=== PATIENT | male | born 1985 | race Caucasian/White ===

== ENCOUNTER → 2018-07-08 11:15 | Outpatient (CLI) | payer OTHER, SELFPAY | PROVIDERS: Family Provider Family Medicine; PCP Physician Assistant; Visit Provider Physician Assistant | DX: T14.8XXA Other injury of unspecified body region, initial encounter (principal) | CPT/HCPCS: 87070; 87075; 87205 ==

== ENCOUNTER 2018-07-27 17:16 | Emergency (ER) | payer OTHER, SELFPAY ==
[2018-07-27 17:23] VITALS: BP 131/78; PULSE 70; RESP 18; TEMP 36.6; O2SAT 97; BMI 28.4
--- NOTE | 2018-07-27 18:50 | ED_ITS ---
HPI - Wound/Laceration <JARETT Centeno - Last Filed: 07/27/18 20:16> General Chief Complaint: Wound/Laceration Stated Complaint: laceration to inner right thigh, stitches opening Time Seen by Provider: 07/27/18 18:38 Source: patient and family Mode of arrival: ambulatory Limitations: no limitations History of Present Illness HPI narrative: Patient is a 32-year-old male former smoker presents with his mother for chief complaint of concerned about a laceration on his right thigh. He received 22 stitches on his leg after being cut by a pipe at work at the end of June. He followed up with the walk-in clinic for suture removal on the , was told he was not ready to have his sutures out and then had them out on the of this month. Two days ago he noted purulent drainage, spreading redness and became concerned that the laceration was opening up again. He denies any fevers nausea vomiting or diarrhea. He denies any cough congestion shortness of breath or chest pain. Related Data Previous Rx's Medication Instructions Recorded cephalexin 500 mg PO QID 10 Days #40 cap 07/27/18 sulfamethoxazole-trimethoprim 1 tab PO BID #20 tab 07/27/18 Allergies Allergy/AdvReac Type Severity Reaction Status Date / Time No Known Drug Allergies Allergy Verified 07/27/18 19:19 Review of Systems <THIAGO Centeno - Last Filed: 07/27/18 20:16> Review of Systems GENERAL: Denies chills, fatigue, malaise, fever, sweats. HEENT: Denies sinus pain, ear pain, sore throat, difficulty swallowing, dizziness. RESPIRATORY: Denies dyspnea, cough, wheezing, hemoptysis, sputum. CARDIOVASCULAR: Denies chest pain, palpitations, orthopnea, edema, GASTROINTESTINAL: Denies nausea, vomiting, abdominal pain, diarrhea, constipation, melena. : Denies dysuria, frequency, incontinence, hematuria, urinary retention. MUSCULOSKELETAL: denies weakness, joint pain, or bony pain SKIN: See HPI NEUROLOGIC: Denies weakness, headache, numbness, change in speech, confusion, seizures, incoordination. PSYCHIATRIC: No concerning psychosocial issues. 12 point review of systems is negative except for those stated above Exam <JARETT Centeno - Last Filed: 07/27/18 20:16> Narrative Exam Narrative: GENERAL: This is a well-nourished, well-developed patient, in mild distress. HEAD: Atraumatic. Normocephalic. No temporal or scalp tenderness. EYES: Pupils equal round and reactive. Extraocular motions intact. No scleral icterus. No injection or drainage. ENT: Nose without bleeding, purulent drainage or septal hematoma. Throat without erythema, tonsillar hypertrophy or exudate. Uvula midline. Airway patent. NECK: Trachea midline. No JVD or lymphadenopathy. Supple, nontender, no meningeal signs. CARDIOVASCULAR: Regular rate and rhythm without murmurs, gallops, or rubs. RESPIRATORY: Clear to auscultation. Breath sounds equal bilaterally. No wheezes , rales, or rhonchi. GASTROINTESTINAL: Abdomen soft, non-tender, nondistended. No hepato-splenomegaly , or palpable masses. No guarding. EXTREMITIES: No clubbing, cyanosis, or edema. No joint tenderness, effusion, or edema noted. BACK: Nontender without deformity or crepitance. No flank tenderness. NEURO: AOx3. SKIN: Right ankle shaped 9 by 2 cm healing laceration noted superior aspect of right thigh. Superior aspect of laceration has approximately 2 cm separation. Noted to have granulation tissue, purulent exudate in surrounding erythema 1 cm around entire suture site. Depth is through dermis. Initial Vital Signs Initial Vital Signs: Vital Signs Temperature 97.8 F 07/27/18 17:23 Pulse Rate 70 07/27/18 17:23 Respiratory Rate 18 07/27/18 17:23 Blood Pressure 131/78 07/27/18 17:23 Pulse Oximetry 97 07/27/18 17:23 <Makayla Villalba DO - Last Filed: 07/28/18 01:19> Initial Vital Signs Initial Vital Signs: Vital Signs Temperature 97.8 F 07/27/18 17:23 Pulse Rate 70 07/27/18 17:23 Respiratory Rate 18 07/27/18 17:23 Blood Pressure 131/78 07/27/18 17:23 Pulse Oximetry 97 07/27/18 17:23 Course <SILVIO Centeno-EUSEBIO - Last Filed: 07/27/18 20:16> Orders Ordered: Discontinued Medications Cephalexin HCl (Keflex) 500 mg PO NOW ONE Stop: 07/27/18 19:03 Last Admin: 07/27/18 19:16 Dose: 500 mg Trimethoprim/Sulfamethoxazole (Bactrim Ds) 1 tab PO NOW ONE Stop: 07/27/18 19:03 Last Admin: 07/27/18 19:16 Dose: 1 tab Vital Signs - 8 hr 07/27/18 17:23 07/27/18 20:01 Temperature 97.8 F Pulse Rate 70 71 Respiratory Rate 18 12 Blood Pressure 131/78 136/84 Pulse Oximetry 97 97 <Makayla Villalba DO - Last Filed: 07/28/18 01:19> Orders Ordered: Discontinued Medications Cephalexin HCl (Keflex) 500 mg PO NOW ONE Stop: 07/27/18 19:03 Last Admin: 07/27/18 19:16 Dose: 500 mg Trimethoprim/Sulfamethoxazole (Bactrim Ds) 1 tab PO NOW ONE Stop: 07/27/18 19:03 Last Admin: 07/27/18 19:16 Dose: 1 tab Vital Signs - 8 hr 07/27/18 17:23 07/27/18 20:01 Temperature 97.8 F Pulse Rate 70 71 Respiratory Rate 18 12 Blood Pressure 131/78 136/84 Pulse Oximetry 97 97 MDM - Wound/Laceration <JARETT Centeno - Last Filed: 07/27/18 20:16> MDM Narrative Medical decision making narrative: Patient presents with a wound status post suture removal. Given the purulent exudate spreading erythema, I am starting him on Keflex as well as Bactrim. Wound culture is pending at this point time. I did give him strict return precautions including fever, inability keep down fluids and signs of systemic illness. He is given 1st dose of antibiotics in the emergency department. Patient states understanding and has no questions or concerns upon discharge. Discharge Plan Departure Patient Disposition: Home Clinical Impression: Wound infection Discharge Date/Time: 07/27/18 20:03 Interventions: ED Discharge Assessment Last Done: 07/27/18 20:01 Instructions: DI for Wound Infection Activity Restrictions/Additional Instructions: Your laceration is infected at this time. I am starting on antibiotics. I am sending off a wound culture to make sure that the antibiotics are in appropriate choice. Monitor for extending redness, fever, vomiting diarrhea and signs that her getting sicker. Please follow-up with her primary care provider in a few days for wound check. Please come back to the emergency department for any acute concerns. Prescriptions: New cephalexin 500 mg capsule 500 mg PO QID 10 Days Qty: 40 RF: 0 sulfamethoxazole-trimethoprim 800-160 mg tablet 1 tab PO BID Qty: 20 RF: 0 Referrals: Hussain Kendrick MD [Primary Care Provider] - <Makayla Villalba DO - Last Filed: 07/28/18 01:19> Cosign ED Attending Cosignature Attestation: I was immediately available in the department for consultation. This documentation has been reviewed and I agree with assessment and plan. Supervised by Makayla Villalba DO
[2018-07-27] MEDS: cephALEXin 250 MG CAPSULE 500 MG PO (19:16)
[2018-07-27] MEDS: TRIMETH/SULFA 160/800 (DS) TABLET 1 TAB PO (19:16)
[2018-07-27 20:01] VITALS: BP 136/84; PULSE 71; RESP 12; O2SAT 97
== END 2018-07-27 20:03 | disposition home or self-care (01) ==
PROVIDERS: Emergency Provider Nurse Practitioner Family; Family Provider Family Medicine; PCP Family Medicine
DX: S71.111A Laceration without foreign body, right thigh, initial encounter (principal); L08.9 Local infection of the skin and subcutaneous tissue, unspecified
CPT/HCPCS: 99283

== ENCOUNTER → 2018-10-31 07:12 | Outpatient (CLI) | payer OTHER, SELFPAY ==
--- NOTE | 2018-10-31 07:21 | DI.CT.S_ITS ---
PROCEDURE: CT KIDNEY URETER BLADDER (KUB) INDICATIONS: RIGHT SIDED FLANK PAIN TECHNIQUE: Noncontrast 5 mm thick sections acquired from the diaphragms to the symphysis. 5 mm thick coronal and sagittal reformats were then performed. For radiation dose reduction, the following was used: automated exposure control, adjustment of mA and/or kV according to patient size. COMPARISON: None. FINDINGS: Image quality: Excellent. Lung bases: Lung bases are clear. Heart size is normal. Urinary system: Both kidneys are normal in size. No kidney stones. No hydronephrosis or perinephric fat stranding. Both ureters appear non-dilated throughout their expected courses. The urinary bladder is decompressed. No visible calcifications. Normal wall thickness. Other solid organs: Liver is normal in size. Gallbladder is normal. Pancreas is normal in contours. Spleen is normal in size. No adrenal nodules. Peritoneum and bowel: Unenhanced bowel loops demonstrate normal wall thickness and caliber. Normal to minimally increased quantity of solid stool throughout the colon. No free fluid or air. The appendix was not visible, either very diminutive or surgically absent. Nodes and vessels: No retroperitoneal or mesenteric adenopathy by size criteria. Aorta and inferior vena cava are normal in caliber. Abdominal wall: No ventral hernias. Pelvis: No free pelvic fluid. No inguinal hernias or adenopathy. Bones: No suspicious bony lesions. No vertebral body compression fractures. IMPRESSION: 1. No evidence of urinary calcifications or obstructive uropathy. 2. No pathology to explain patient's right flank pain. Dictated by: Yanet Shaw M.D. on 10/31/2018 at 9:55 Approved by: Yanet Shaw M.D. on 10/31/2018 at 10:03
== END ==
PROVIDERS: PCP Family Medicine; Visit Provider Family Medicine
DX: R10.9 Unspecified abdominal pain (principal)
CPT/HCPCS: 74176

== ENCOUNTER → 2018-11-04 17:24 | Outpatient (CLI) | payer OTHER, SELFPAY ==
[2018-11-04 18:29] LABS: Appearance Urine UA CLEAR; Bilirubin Urine UA NEGATIVE (NEGATIVE); Color Urine UA YELLOW; Glucose Urine UA NEGATIVE (Negative); Ketones Urine UA NEGATIVE (NEGATIVE); Leukocyte Esterase Urine UA NEGATIVE (NEGATIVE); Nitrite Urine UA NEGATIVE (Negative); Occult Blood Urine UA NEGATIVE (Negative); Protein Urine UA NEGATIVE (Negative); Urobilinogen Urine UA 0.2 E.U./dL (0.2)
[2018-11-04 18:31] LABS: Hematocrit 48.3 % (41-53); Hemoglobin 16.3 g/dL (13.5-17.5); Mean Corpuscular HGB Conc 33.7 % (30-36); Mean Corpuscular Hemoglobin 30.1 PG (26-34); Mean Corpuscular Volume 89.2 fL (80-100); Platelet Count 277 X10^3/uL (150-400); Red Blood Cell Count 5.42 X10^6/uL (4.5-5.9); Red Cell Distribution Width 12.6 % (11.6-14.8); White Blood Cell Count 9.8 X10^3/uL (4.5-11.0)
[2018-11-04 18:40] LABS: Alanine Aminotransferase 43 IU/L (21-72); Albumin 4.7 g/dL (3.5-5.0); Albumin Globulin Ratio 1.7 (1.0-2.8); Alkaline Phosphatase 62 U/L (38-126); Aspartate Aminotransferase 26 IU/L (17-59); Bilirubin Total 0.4 mg/dL (0.2-1.3); Blood Urea Nitrogen 12 mg/dL (9-20); Calcium 9.6 mg/dL (8.4-10.2); Carbon Dioxide 28 mmol/L (22-32); Chloride 103 mmol/L (98-107); Cholesterol 148 mg/dL (140-199); Estimated Glomerular Filt Rate > 60.0 mL/min (>60); Globulin 2.7 g/dL (1.7-4.1); Glucose 81 mg/dL (70-100); HDL Cholesterol 37 mg/dL (40-60); HEMOLYSIS < 15 (0-50); LDL Cholesterol Calculated 51 mg/dL (<100); Potassium 4.2 mmol/L (3.4-5.1); Sodium 141 mmol/L (137-145); Total Protein 7.4 g/dL (6.3-8.2); Triglycerides 302 mg/dL (35-150)
[2018-11-04 18:45] LABS: Neutrophils Absolute Manual 5880 /uL (3000-5900); RBC Morphology Normal Morphology; Total Cells Counted 100
[2018-11-04 19:10] LABS: TSH w/ Reflex to FT4 2.01 uIU/mL (0.47-4.68)
== END ==
PROVIDERS: PCP Family Medicine; Visit Provider Family Medicine
DX: I45.6 Pre-excitation syndrome (principal); R10.9 Unspecified abdominal pain
CPT/HCPCS: 36415; 80053; 80061; 81003; 84443; 85025

== ENCOUNTER 2018-12-26 10:26 | Day surgery (SDC) | payer OTHER, SELFPAY ==
--- NOTE | 2018-12-26 | PATH_ITS ---
[facility] Accession Number: [id number] . 01 Material submitted: . esophagus, E-G Junction - GE JUNCTION . 02 Diagnosis: Gastroesophageal Junction, Biopsy: Squamous mucosa with reflux-rlated changes and active inflammation. A PAS stain is negative for fungal organisms. Intraepithelial eosinophils are not increased. Negative for dysplasia and malignancy. [facility]/01/01/2019 . 02 Electronically signed: . Hollie Reyes MD, Pathologist NPI- [id number] . 01 Gross description: . GE JUNCTION: Received in formalin are multiple fragment(s) of webb, soft tissue measuring 0.6 x 0.5 x 0.2 cm in aggregate submitted entirely in 1 cassette(s) /CKI /CKI . 02 Microscopic: . A PAS stain was performed to evaluate for fungal organisms and is negative. The control stain showed appropriate reactivity. . 02 Pathologist provided ICD-10: R10.13 . 02 CPT . 025021, 235704 Performed at: 01 [facility] [address] [facility], [place], [place] [id number] MD Juan M Rodriguez MD Phone: [phone] Performed at: 02 [facility] [address] [place], [place] [id number] MD Hollie Reyes MD Phone: [phone]
[2018-12-26 12:15] VITALS: BMI 26.1
[2018-12-26 12:21] VITALS: BP 139/83; PULSE 76; RESP 16; TEMP 37; O2SAT 96
--- NOTE | 2018-12-26 12:30 | PM.PREOP ---
Pre-operative Note Interval Note History & Physical reviewed/Exam performed by Physician: Yes Changes to H&P: No H&P completed within 30 days and has changed as indicated here:: See recent office visit ASA Class (for procedural sedation): I
[2018-12-26] MEDS: SODIUM CHLORIDE 0.9% 1,000 ML 84 ML IV (12:42)
[2018-12-26] MEDS: fentaNYL 250 MCG/5 ML INJ IV (13:18)
[2018-12-26] MEDS: MIDAZOLAM 5 MG/5 ML VIAL IV (13:19)
[2018-12-26] MEDS: TETRACAINE/BENZOCAINE/BUTAMBEN (CETACAINE) BOTTLE 1 SPRAY TOP (13:20)
[2018-12-26 13:26] VITALS: BP 115/72; PULSE 85; RESP 15; TEMP 36.6; O2SAT 98
[2018-12-26 13:59] VITALS: BP 118/80; PULSE 103; RESP 16; TEMP 37.2; O2SAT 95
--- NOTE | 2018-12-26 13:59 | P.OP.ENDO_ITS ---
Operative Date/Time/Diagnoses Date of procedure: 12/26/18 Time of procedure: 13:53 Pre-op diagnosis: Right abdominal pain. Epigastric pain. History of gastroesophageal reflux. Post-op diagnosis: same (Inflammation at the GE junction it. Possible Posada's esophagus.) Procedure & Clinicians Study performed: EGD with cold biopsy. Colonoscopy. Same procedure as scheduled: Yes Indications: Chronic epigastric pain. New right abdominal pain of uncertain cause. Surgeon: Nik Olmedo Procedure Notes SCOAP/Timeout: Performed Procedure in detail: The patient had topical anesthetic applied to oropharynx. She was placed in left lateral decubitus position and underwent IV sedation directed by the surgeon consisting of fentanyl and Versed. A bite block was inserted and the scope was advanced through it into the esophagus. The esophagus was unremarkable. GE junction was noted at 45 cm from the incisors. There was some mild inflammation and a little bit of redness extending above the GE junction possibly consistent with Posada's esophagus or a healing ulcer at the GE junction. The stomach insufflated well. There were no lesions seen in the body, antrum or at the incisura. The pyloric channel was widely patent. The duodenum was unremarkable to the 4th part. The scope was brought back into the stomach and retroflexed. The proximal stomach normal in appearance. The scope was straightened and brought out through the esophagus again. No lesions were seen. The scope was removed and the patient tolerated the procedure well. The patient was placed in the left lateral decubitus position and underwent IV sedation directed by the surgeon consisting of fentanyl and Versed. Digital exam was unremarkable. Prostate slightly enlarged. No palpable masses. The scope was inserted and advanced through the rectum into the sigmoid, descending, transverse, and ascending colon. Pressure was applied and we made our way into the cecum. The cecum was reached identified by the ileocecal valve and the ap pendiceal opening. The ileocecal valve was successfully cannulated. The terminal ileum was normal in appearance. The scope was gradually brought out. No Polyps or other lesions were found. The scope ultimately was retroflexed in the rectum. The appearance was normal. The scope was removed and the patient tolerated the procedure well. Prep was excellent Scope withdrawal time: 7.5 minutes Sedation minutes: 33 Findings: Posada's esophagus (Possible) and other findings (Inflammation at the GE junction) Specimen(s): other (GE junction biopsies) Complications: none Recommendations: Other recommendation (None.) Follow up: as needed Disposition: PACU
[2018-12-26 14:03] VITALS: BP 130/92; PULSE 81; RESP 12; TEMP 36.2; O2SAT 97
[2018-12-26 14:08] VITALS: BP 120/79; PULSE 94; RESP 16; O2SAT 95
[2018-12-26 14:35] VITALS: BP 116/82; PULSE 86; RESP 15; TEMP 36.6; O2SAT 98
== END 2018-12-26 15:01 | disposition home or self-care (01) ==
PROVIDERS: PCP Family Medicine; Visit Provider Specialist
PROC: 0DJ08ZZ Inspection of Upper Intestinal Tract, Via Natural or Artificial Opening Endoscopic (ICD-10-PCS; CPT 43235; principal; 2018-12-26 12:45)
PROC: 0DJD8ZZ Inspection of Lower Intestinal Tract, Via Natural or Artificial Opening Endoscopic (ICD-10-PCS; CPT 45378; 2018-12-26 12:45)
DX: R10.9 Unspecified abdominal pain (principal); R10.13 Epigastric pain; K21.9 Gastro-esophageal reflux disease without esophagitis
CPT/HCPCS: 43239; 45378; 99152; 99153; J2250; J3010

== ENCOUNTER → 2019-01-13 14:19 | Outpatient (CLI) | payer OTHER, SELFPAY ==
--- NOTE | 2019-01-13 14:21 | DI.RAD.S_ITS ---
PROCEDURE: XR CHEST 2V INDICATIONS: chest pain TECHNIQUE: 2 views of the chest were acquired. COMPARISON: [facility], , CHEST 2 VIEW, 11/22/2009, 9:14. FINDINGS: Surgical changes and devices: None. Lungs and pleura: Lungs are clear. No pleural effusions or pneumothorax. Mediastinum: Mediastinal contours are normal. Heart size is normal. Bones and chest wall: No suspicious bony abnormalities. Soft tissues appear unremarkable. IMPRESSION: No acute cardiopulmonary disease. Dictated by: Haider Gutierrez M.D. on 01/13/2019 at 16:29 Approved by: Haider Gutierrez M.D. on 01/13/2019 at 16:29
== END ==
PROVIDERS: PCP Family Medicine; Visit Provider Family Medicine
DX: I45.6 Pre-excitation syndrome (principal); R07.9 Chest pain, unspecified
CPT/HCPCS: 71046

== ENCOUNTER 2019-10-21 05:59 | Emergency (ER) | payer OTHER, SELFPAY ==
--- NOTE | 2019-10-21 06:01 | ED.ARRPALP ---
HPI - Arrhythmia/Palpitations <Makayla Lopez DO - Last Filed: 10/22/19 01:35> General Chief Complaint: Arrhythmia/Palpitations Stated Complaint: cant get heart beat to slow down Time Seen by Provider: 10/21/19 06:01 Source: patient Mode of arrival: Ambulatory Limitations: no limitations History of Present Illness HPI narrative: This is a 33-year-old male to the emergency department with complaint of fast heartbeat. Patient states he felt yesterday for about an hour half it resolved. He states he woke up this morning about 5:00 a.m. at also is having symptoms currently. Patient states that he has not had any fevers. He denies any lightheadedness or dizziness. No syncope or presyncope. He denies any chest pain or pressure. Denies any shortness of breath. He does state that he feels like he is breathing a little faster. He denies any nausea, no vomiting, no diaphoresis. He has not had any GI or urinary symptoms with no diarrhea, constipation. No frequency, dysuria urgency. 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 He denies any other medical issues, no prior surgeries. No allergies to medications. No tobacco, 1-2 alcoholic drinks monthly with none recently and no illicit. He sees in [place] through [facility]. Related Data Previous Rx's Medication Instructions Recorded meloxicam 15 mg tablet 15 mg PO DAILY PRN #30 tab 02/23/19 hydroxyzine HCl 10 mg tablet 10 mg PO TID PRN #30 tab 04/14/19 Allergies Allergy/AdvReac Type Severity Reaction Status Date / Time No Known Drug Allergies Allergy Verified 04/14/19 11:49 Review of Systems <Makayla Lopez DO - Last Filed: 10/22/19 01:35> Review of Systems ROS Unobtainable: All systems reviewed & are unremarkable except as noted in HPI and below Patient History <Makayla Lopez DO - Last Filed: 10/22/19 01:35> Medical History Abdominal pain (Acute) Chicken pox (Resolved ~1990) Seasonal allergies (Chronic) WPW (Rxsqa-Lfamnnjlt-Fxxsr syndrome) (Chronic) Surgical History Anesthesia (Resolved) History of appendectomy (Resolved) History of knee surgery (Resolved) Social History marital status: household members: spouse occupational status: employed Smoking Status: Former smoker alcohol intake: current substance use type: does not use Smoking Status: Former smoker alcohol intake frequency: 0-2 drinks per day Substance Use Type: does not use Exam <Makayla Lopez DO - Last Filed: 10/22/19 01:35> Narrative Exam Narrative: GENERAL: Alert and oriented x three, tall, well-appearing male in mild distress. Patient ambulated into the room without issue. HEENT: Head normocephalic, atraumatic, EOMI, pupils reactive, face symmetric, moist mucous membranes NECK: Supple, full range of motion CARDIOVASCULAR: Regular rate and rhythm without murmurs, rubs or gallops. No JVD. No edema bilateral lower extremities. RESPIRATORY: Breath sounds equal bilaterally, no wheezes rales or rhonchi. ABDOMEN: Soft, nontender. Normoactive bowel sounds all 4 quadrants. No guarding or rebound, rigidity, no mass : No CVA tenderness EXTREMITIES: Normal range of motion, no clubbing or edema. Neurovascularly intact NEUROLOGICAL: Cranial nerves II through XII grossly intact. Moving all extremities SKIN: Warm, dry, no petechiae, no rashes or lesions. Initial Vital Signs Initial Vital Signs: Vital Signs Temperature 97.7 F 10/21/19 06:08 Pulse Rate 84 10/21/19 06:08 Respiratory Rate 18 10/21/19 06:08 Blood Pressure 147/90 H 10/21/19 06:08 Pulse Oximetry 99 10/21/19 06:08 <Padilla Hawley DO - Last Filed: 10/21/19 07:31> Initial Vital Signs Initial Vital Signs: Vital Signs Temperature 97.7 F 10/21/19 06:08 Pulse Rate 84 10/21/19 06:08 Respiratory Rate 18 10/21/19 06:08 Blood Pressure 147/90 H 10/21/19 06:08 Pulse Oximetry 99 10/21/19 06:08 Course <Makayla Lopez DO - Last Filed: 10/22/19 01:35> Orders Ordered: ED Orders 10/21/19 EKG-12 Lead Stat 10/21/19 06:07 XR chest 1V Stat 10/21/19 06:15 Basic Metabolic Panel Stat Complete Blood Count AUTO DIFF Stat Magnesium Stat Thyroid Stimulating Hormone Stat Troponin & CK Cardiac Panel Stat Vital Signs Vital signs: Vital Signs - 8 hr 10/21/19 06:08 Temperature 97.7 F Pulse Rate 84 Respiratory Rate 18 Blood Pressure 147/90 H Pulse Oximetry 99 <Padilla Marleen, DO - Last Filed: 10/21/19 07:31> Orders Ordered: ED Orders 10/21/19 EKG-12 Lead Stat 10/21/19 06:07 XR chest 1V Stat 10/21/19 06:15 Basic Metabolic Panel Stat Complete Blood Count AUTO DIFF Stat Magnesium Stat Thyroid Stimulating Hormone Stat Troponin & CK Cardiac Panel Stat Vital Signs Vital signs: Vital Signs - 8 hr 10/21/19 06:08 Temperature 97.7 F Pulse Rate 84 Respiratory Rate 18 Blood Pressure 147/90 H Pulse Oximetry 99 MDM - Arrhythmia/Palpitations <Makayla Lopez, DO - Last Filed: 10/22/19 01:35> Lab Data Result diagrams: 10/21/19 06:15 10/21/19 06:15 Labs: Lab Results 10/21/19 10/21/19 10/21/19 Range/Units 06:15 06:15 06:15 WBC 7.2 (4.5-11.0) X10^3/uL RBC 5.16 (4.5-5.9) X10^6/uL Hgb 15.8 (13.5-17.5) g/dL Hct 46.2 (41-53) % MCV 89.5 (80-100) fL MCH 30.7 (26-34) PG MCHC 34.2 (30-36) % RDW 12.7 (11.6-14.8) % Plt Count 235 (150-400) X10^3/uL Neut % (Auto) 46.2 L (50-75) % Lymph % (Auto) 42.5 H (25-40) % Coleman % (Auto) 7.9 (3-14) % Eos % (Auto) 3.2 (2-4) % Baso % (Auto) 0.2 (0-2) % Neut # (Auto) 3300 (7952-4088) /uL Lymph # (Auto) 3100 (4240-7970) /uL Coleman # (Auto) 600 (0-900) /uL Eos # (Auto) 200 (0-450) /uL Baso # (Auto) 0 (0-100) /uL Sodium 140 (137-145) mmol/L Potassium 3.3 L (3.4-5.1) mmol/L Chloride 105 (98-107) mmol/L Carbon Dioxide 28 (22-32) mmol/L BUN 9 (9-20) mg/dL Creatinine 0.71 (0.66-1.25) mg/dL Estimated GFR > 60.0 (>60) mL/min BUN/Creatinine Ratio 12.7 (6-22) Glucose 111 H (70-100) mg/dL Calcium 9.3 (8.4-10.2) mg/dL Magnesium 2.0 (1.6-2.3) mg/dL Total Creatine Kinase 58 (55-170) U/L CK-MB (CK-2) TNP CK-MB (CK-2) Rel Index TNP Troponin I < 0.012 (0.01-0.034) ng/mL TSH 2.80 (0.47-4.68) uIU/mL Imaging Data Chest x-ray: Attestation: I personally reviewed and interpreted this imaging study as follows: ECG Data Attestation: I personally reviewed and interpreted this ECG as follows: Prior ECG tracings: available for review Interpretation: Sinus rhythm with a rate of 75, WA 114, QRS of 172 and QTC of 493. Patient does have what appears to be a delta wave with EKG that appears consistent with Eqoyh-Cdcqdgocg-Ydmjl. Patient has prior EKG from 06/15/2013 which appears similar except for some depression in aVL. I do not appreciate new depression in 1 in comparison to the prior, otherwise ST segments appears similar to prior EKG MDM Narrative Medical decision making narrative: On arrival patient states he seemed 10 you to feel like his heart rate is fast. His heart rate is 80s on the monitor and by palpation and auscultation. On EKG he does have what appears to be Fcryb-Dtzarrrqc-Pybuz rhythm with a rate of 75. Plan for chest x-ray, lab work and further evaluation. Patient states he checked his blood pressure with a wrist cuff yesterday while having an episode of fast heartbeat and his blood pressure was a systolic of 150 and the heart rate noted it was 90. 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 Patient signed out to Dr. Hawley while labs pending for final disposition. <Padilla Hawley, DO - Last Filed: 10/21/19 07:31> Lab Data Attestation: I reviewed the patient's lab results. Labs: Lab Results 10/21/19 10/21/19 10/21/19 Range/Units 06:15 06:15 06:15 WBC 7.2 (4.5-11.0) X10^3/uL RBC 5.16 (4.5-5.9) X10^6/uL Hgb 15.8 (13.5-17.5) g/dL Hct 46.2 (41-53) % MCV 89.5 (80-100) fL MCH 30.7 (26-34) PG MCHC 34.2 (30-36) % RDW 12.7 (11.6-14.8) % Plt Count 235 (150-400) X10^3/uL Neut % (Auto) 46.2 L (50-75) % Lymph % (Auto) 42.5 H (25-40) % Coleman % (Auto) 7.9 (3-14) % Eos % (Auto) 3.2 (2-4) % Baso % (Auto) 0.2 (0-2) % Neut # (Auto) 3300 (4451-9282) /uL Lymph # (Auto) 3100 (9613-3055) /uL Coleman # (Auto) 600 (0-900) /uL Eos # (Auto) 200 (0-450) /uL Baso # (Auto) 0 (0-100) /uL Sodium 140 (137-145) mmol/L Potassium 3.3 L (3.4-5.1) mmol/L Chloride 105 (98-107) mmol/L Carbon Dioxide 28 (22-32) mmol/L BUN 9 (9-20) mg/dL Creatinine 0.71 (0.66-1.25) mg/dL Estimated GFR > 60.0 (>60) mL/min BUN/Creatinine Ratio 12.7 (6-22) Glucose 111 H (70-100) mg/dL Calcium 9.3 (8.4-10.2) mg/dL Magnesium 2.0 (1.6-2.3) mg/dL Total Creatine Kinase 58 (55-170) U/L CK-MB (CK-2) TNP CK-MB (CK-2) Rel Index TNP Troponin I < 0.012 (0.01-0.034) ng/mL TSH 2.80 (0.47-4.68) uIU/mL MDM Narrative Medical decision making narrative: Dr hawley: Received turned over from Dr lopez. Review patient's history and physical and EKG and labs. Patient does appear to have WPW however his rate and rhythm since being here in the emergency department been unremarkable. His labs unremarkable. He has a follow-up with Cardiology in approximately 1 hour from now. He is currently asymptomatic. Will discharge home with a copy of his EKG and his labs. He was given return precautions and follow-up instructions. He expressed understanding and agreement. Discharge Plan Departure Patient Disposition: Home Clinical Impression: Palpitations, WPW (Pkmta-Nlxiyknnl-Flacp syndrome) Discharge Date/Time: 10/21/19 07:50 Instructions: DI for Bnibw-Ptnhwdjnr-Swtpp Syndrome Activity Restrictions/Additional Instructions: Recommend that you take a copy of your labs and your EKG today and proceed to your cardiology appointment after discharge. Return to the emergency department for any new or worsening symptoms Prescriptions: No Action meloxicam [Mobic] 15 mg tablet 15 mg PO DAILY PRN (Reason: pain) Qty: 30 RF: 0 hydroxyzine HCl 10 mg tablet 10 mg PO TID PRN (Reason: anxity) Qty: 30 RF: 0 Referrals: Hussain Kendrick MD [Primary Care Provider] -
--- NOTE | 2019-10-21 06:07 | DI.RAD.S_ITS ---
PROCEDURE: XR CHEST 1V INDICATIONS: fast heart beat TECHNIQUE: One view of the chest was acquired. COMPARISON: [facility], CR, XR CHEST 2V, 01/13/2019, 14:17. FINDINGS: Surgical changes and devices: None. Lungs and pleura: Lungs are clear. No pleural effusions or pneumothorax. Mediastinum: Mediastinal contours appear normal. Heart size is normal. Bones and chest wall: No suspicious bony lesions. Overlying soft tissues appear unremarkable. IMPRESSION: No acute cardiopulmonary pathology. Dictated by: Yohannes Rosa M.D. on 10/21/2019 at 8:40 Approved by: Yohannes Rosa M.D. on 10/21/2019 at 8:40
[2019-10-21 06:08] VITALS: BP 147/90; PULSE 84; RESP 18; TEMP 36.5; O2SAT 99
[2019-10-21 06:24] LABS: Add Manual Diff / Slide Review NO; Basophils Absolute Auto 0 /uL (0-100); Basophils Percent Auto 0.2 % (0-2); Eosinophils Absolute Auto 200 /uL (0-450); Eosinophils Percent Auto 3.2 % (2-4); Hematocrit 46.2 % (41-53); Hemoglobin 15.8 g/dL (13.5-17.5); Lymphocytes Absolute Auto 3100 /uL (1100-4500); Lymphocytes Percent Auto 42.5 % (25-40); Mean Corpuscular HGB Conc 34.2 % (30-36); Mean Corpuscular Hemoglobin 30.7 PG (26-34); Mean Corpuscular Volume 89.5 fL (80-100); Monocytes Absolute Auto 600 /uL (0-900); Monocytes Percent Auto 7.9 % (3-14); Neutrophils Absolute Auto 3300 /uL (1500-7000); Neutrophils Percent Auto 46.2 % (50-75); Platelet Count 235 X10^3/uL (150-400); Red Blood Cell Count 5.16 X10^6/uL (4.5-5.9); Red Cell Distribution Width 12.7 % (11.6-14.8); White Blood Cell Count 7.2 X10^3/uL (4.5-11.0)
[2019-10-21 06:33] LABS: BUN Creatinine Ratio 12.7 (6-22); Blood Urea Nitrogen 9 mg/dL (9-20); Calcium 9.3 mg/dL (8.4-10.2); Carbon Dioxide 28 mmol/L (22-32); Chloride 105 mmol/L (98-107); Creatine Kinase 58 U/L (55-170); Estimated Glomerular Filt Rate > 60.0 mL/min (>60); Glucose 111 mg/dL (70-100); HEMOLYSIS < 15 (0-50); Potassium 3.3 mmol/L (3.4-5.1); Sodium 140 mmol/L (137-145)
[2019-10-21 06:45] LABS: Troponin I < 0.012 ng/mL (0.01-0.034)
[2019-10-21 07:47] VITALS: BP 138/82; PULSE 73; RESP 18; O2SAT 100
== END 2019-10-21 07:50 | disposition home or self-care (01) ==
PROVIDERS: Emergency Medicine; Emergency Provider Emergency Medicine; PCP Family Medicine
DX: R00.2 Palpitations (principal); I45.6 Pre-excitation syndrome
CPT/HCPCS: 36415; 71045; 80048; 82550; 83735; 84443; 84484; 85025; 93005; 99284